=== PATIENT | female | born 1980 | race Caucasian/White ===

== ENCOUNTER 2019-05-08 08:34 | Day surgery (SDC) | payer OTHER ==
[~2019-05-08] VITALS: Ht 149.9 cm; Wt 64.4 kg
[~2019-05-08 08:34] MED LIST: BUPIVACAINE/EPI 0.5% 1:200K ONE; HEPARIN 1,000 UNITS/ML, 10ML ONE
[2019-05-08] MEDS ORDERED: SODI650T PO (09:31)
[2019-05-08] MEDS ORDERED: MELA3TAB62 PO (09:31)
[2019-05-08] MEDS ORDERED: PARI2CAP3 PO (09:31)
[2019-05-08 09:33] VITALS: BP 117/81
[2019-05-08 09:35] LABS: HCG UR SG 1.008 (1.003-1.030)
[2019-05-08 09:37] VITALS: BP 117/81
[2019-05-08] MEDS ORDERED: SODIUM CHLORIDE 0.9% 1,000 ML IV SCH (10:13)
[2019-05-08] MEDS ORDERED: FENTANYL PF 250 MCG/5ML ONE (10:51)
[2019-05-08] MEDS ORDERED: PROPOFOL 50 ML ONE (10:51)
[2019-05-08] MEDS ORDERED: MIDAZOLAM 1 MG/ML, 2ML ONE (10:59)
[2019-05-08] MEDS ORDERED: ONDANSETRON 2MG/ML, 2ML IV PRN (11:00)
[2019-05-08] MEDS ORDERED: MORPHINE SULFATE 4 MG/ML, 1ML IVPush PRN (11:00)
[2019-05-08] MEDS ORDERED: EPHEDRINE 50 MG/ML, 1ML IVPush PRN (11:00)
[2019-05-08] MEDS ORDERED: DIPHENHYDRAMINE 50 MG/ML, 1ML IVPush PRN (11:00)
[2019-05-08] MEDS ORDERED: PROMETHAZINE 25 MG/ML, 1ML IV PRN (11:00)
[2019-05-08] MEDS ORDERED: FENTANYL PF 100 MCG/2ML IV PRN (11:00)
[2019-05-08] MEDS ORDERED: DIAZEPAM 5 MG/ML, 2ML IVPush PRN (11:00)
[2019-05-08] MEDS ORDERED: OXYcodone 5 MG/5 ML ORAL.SOL UDC PO PRN (11:00)
[2019-05-08] MEDS ORDERED: METOPROLOL 1 MG/ML, 5ML IV PRN (11:00)
[2019-05-08] MEDS ORDERED: ONDANSETRON ODT 8 MG PO PRN (11:00)
[2019-05-08] MEDS ORDERED: CEFAZOLIN 1,000 MG ONE (11:00)
[2019-05-08] MEDS ORDERED: EPHEDRINE 50 MG/ML, 1ML IM PRN (11:00)
[2019-05-08] MEDS ORDERED: OXYcodone 5 MG/5 ML ORAL.SOL UDC ONE (11:45)
== END 2019-05-08 12:43 | disposition home or self-care (01) ==
LOC: OUT 08:34
PROVIDERS: ATTEND Surgery Vascular Surgery
DX: Z49.02 Encounter for fitting and adjustment of peritoneal dialysis catheter (principal); I12.0 Hypertensive chronic kidney disease with stage 5 chronic kidney disease or end stage renal disease; N18.6 End stage renal disease; D86.0 Sarcoidosis of lung; Z79.899 Other long term (current) drug therapy; Z88.0 Allergy status to penicillin; Z88.8 Allergy status to other drugs, medicaments and biological substances; Z90.49 Acquired absence of other specified parts of digestive tract; Z82.49 Family history of ischemic heart disease and other diseases of the circulatory system; Z83.3 Family history of diabetes mellitus; Z83.6 Family history of other diseases of the respiratory system
CPT/HCPCS: 36415; 49436; 80047; 81025; J0690; J1644; J2250; J2704; J3010; J7030